=== PATIENT | female | born 1970 | race Caucasian/White ===

== ENCOUNTER → 2019-07-18 07:21 | Day surgery (SDC) | payer BC ==
[~2019-07-18 07:21] MED LIST: Buffered Lidocaine 1% SYRIN* 1 ML/SYRINGE INTRADERM ONE; Bupivacaine 0.25% SDV* 30 ML ONE; Dexamethasone IV* 4 MG/ML 1 ML (4 MG) IV SLOW PU ONE; Dexamethasone IV* 4 MG/ML 1 ML (4 MG) ONE; DiMENhydriNATE IV* 50 MG/ML VIAL IV PUSH PRN; Famotidine IV* 10 MG/ML 2 ML (20 mg) IV ONE; Famotidine IV* 10 MG/ML 2 ML (20 mg) ONE; Glycopyrrolate IV* 0.2 MG/ML 1 ML VIAL ONE; HYDROmorphone INJ1* 1 MG/ML SYRINGE IV PRN; Heparin VIAL(*) 5000 UNITS/ML VIAL (FIVE THOUSAND) ONE; Heparin VIAL(*) 5000 UNITS/ML VIAL (FIVE THOUSAND) SUBCUT ONE; Ketorolac INJ* 30 MG/ML 1 ML VIAL ONE; Lactated Ringers 1000 ML Bag* 1,000 ML IV SCH; Lidocaine 2% PF * 5 ML VIAL ONE; Midazolam* 1 MG/ML 5 ML VIAL (5 MG) ONE; Naloxone* 0.4 MG/ML 1 ML VIAL IV PRN; Ondansetron INJ* 2 MG/ML VIAL IV PRN; Ondansetron INJ* 2 MG/ML VIAL ONE; Propofol* 10 MG/ML 20 ML BTL ONE; fentaNYL* 50 MCG/ML 2 ML VIAL (100 MCG VIAL) IV PRN; fentaNYL* 50 MCG/ML 5 ML VIAL (250 MCG VIAL) ONE; oxyCODONE/Acetamin 5/325 MG* TAB PO PRN
[2019-07-18 09:27] LABS: Hematocrit 43 % (35-47); Hemoglobin 14.8 g/dL (12.0-16.0); Mean Corpuscular HGB Conc 35 g/dL (31-36); Mean Corpuscular Hemoglobin 35 pg (27-31); Mean Corpuscular Volume 100 fL (80-97); Mean Platelet Volume 8.7 fL (7.4-10.4); Platelet Count 227 10^3/uL (150-450); Red Blood Count 4.27 10^6 /uL (3.70-4.87); Red Cell Distribution Width 13 % (10-15); White Blood Count 3.9 10^3/uL (3.5-10.8)
[2019-07-18 13:35] VITALS: BP 112/65
--- NOTE | 2019-07-18 21:13 | OP ---
DATE OF OPERATION: 07/18/19 - [facility] DATE OF : 68 SURGEON: Christin Simmons MD SENIOR BI ARCHITECT: Erich Marie DO ANESTHESIOLOGIST: Dr. Mattson. ANESTHESIA: General endotracheal. PRE-OP DIAGNOSES: Personal history of breast cancer and positive BRCA2 gene mutation. POST-OP DIAGNOSES: Personal history of breast cancer and positive BRCA2 gene mutation. OPERATIVE PROCEDURE: Risk reducing laparoscopic bilateral salpingo- oophorectomy. MATERIALS TO LAB: Bilateral fallopian tubes and ovaries. INDICATIONS: This patient is a 49-year-old 3, para 2, seen about 3 years ago in consultation for risk reducing BSO after seeing Oncology. We had discussed the procedure at that time, but the patient decided against having the procedure done then. She returned recently and desired to proceed with the surgery. She was extensively counseled for the procedure and consent was signed. FINDINGS: Normal-appearing uterus and fallopian tubes, which are both ligated. The left ovary appeared to have a couple of cysts present, but was not significantly enlarged. The right ovary appeared normal. COMPLICATIONS: None. DESCRIPTION OF PROCEDURE: The risks, benefits, and alternatives were described to the patient and informed consent was obtained. The patient was taken to the operating room with IV running where general anesthesia was induced and found to be adequate. The patient was prepped and draped in the normal sterile fashion in the high lithotomy position and Silvano stirrups. A time-out was performed. The bladder was emptied. A bivalved speculum was then placed in the vagina and a Hulka tenaculum was placed on the cervix. The speculum was then removed. The patient was placed in a low lithotomy position. Gloves were changed and attention was turned to the abdomen. 0.25% Marcaine was injected into the umbilicus and an approximately 4 cm incision was made in the midline below the umbilicus. The subcutaneous tissues were dissected off the fascia. The fascia was grasped with a Wilmar clamp and the fascia was incised using the scalpel. The peritoneum was then entered bluntly. A mini Harjeet retractor was then placed into the peritoneal cavity and a GelPOINT was placed on the retractor. The patient was then placed in the Trendelenburg position. The bowel was swept out of the pelvis using blunt graspers. The findings are noted above. The left infundibulopelvic ligament was then grasped with the LigaSure, coagulated and transected. The uteroovarian ligament was also coagulated and transected using the LigaSure. The mesosalpinx was taken down using the LigaSure and the fallopian tube was amputated. The tube and ovary were then placed in the anterior cul-de-sac. The same was then performed on the right side again without difficulty and with excellent hemostasis present. A 10 mm EndoCatch bag was then placed through the larger port. Both specimens were placed into the EndoCatch bag. The GelPOINT was removed and the EndoCatch bag was removed without difficulty. The GelPOINT was replaced and on careful inspection, there was no significant bleeding present at all. The GelPOINT and Harjeet retractors were then removed. The fascia was closed with 0 Vicryl in a running stitch. The skin incision was reapproximated using 4-0 Monocryl in a subcuticular stitch and then this was covered with DermaFlex skin adhesive. The Hulka tenaculum was removed from the cervix and the patient was returned to the supine position. The patient tolerated the procedure well. Sponge, lap, and needle counts were correct x2. [id number]/[facility] #: [id number] [facility]
== END | disposition home or self-care (01) ==
LOC: OR 07:21
PROVIDERS: ATTEND Obstetrics & Gynecology
DX: Z15.02 Genetic susceptibility to malignant neoplasm of ovary (principal); Z85.3 Personal history of malignant neoplasm of breast; N83.11 Corpus luteum cyst of right ovary; N83.202 Unspecified ovarian cyst, left side; I73.00 Raynaud's syndrome without gangrene; Z80.41 Family history of malignant neoplasm of ovary; F41.8 Other specified anxiety disorders
CPT/HCPCS: 36415; 81025; 85027; 86803; 86850; 86900; 86901; 87389; 88305; J1100; J1644; J1885; J2250; J2405; J2704; J3010; J3490